=== PATIENT | female | born 1985 | race Caucasian/White ===

== ENCOUNTER 2016-03-10 16:53 | Emergency (ER) | payer OTHER ==
[2016-03-10 17:08] VITALS: BP 120/69; PULSE 95; TEMP 98.4; BMI 21.2
--- NOTE | 2016-03-10 18:52 | PDOC ---
History of Present Illness - General History Source: Patient Exam Limitations: No Limitations - History of Present Illness Initial Comments: 03/10/16 19:16 The patient is a 31 year old female (; currently 7 months ), with a significant past medical history of asthma, who presents to the emergency department with flu-like symptoms including body aches and a cough since yesterday but worsening this morning. The patient additionally admits to a decreased appetite today. She denies any fevers, chills, SOB, nausea, vomiting, diarrhea or abdominal pain. Allergies: None reported. Past Surgical History: None reported. Social History: Non smoker. Denies alcohol or drug use. PCP: Dr. Mahsa Snell <Jess Alberts - Last Filed: 03/10/16 19:17> - General History Source: Patient Exam Limitations: No Limitations <Marky Chauhan - Last Filed: 03/10/16 20:53> - General Chief Complaint: Cold Symptoms Stated Complaint: 7MONTHS/BODY ACHE/COUGH Time Seen by Provider: 03/10/16 18:15 Past History <Jess Alberts - Last Filed: 03/10/16 19:17> - Past Medical History Anemia: No Asthma: Yes Cancer: No Cardiac Disorders: No CVA: No COPD: Yes CHF: No Dementia: No Diabetes: No GI Disorders: No Disorders: No HTN: No Hypercholesterolemia: No Kidney Stones: No Liver Disease: No Psychiatric Problems: Yes (ANXIETY) Suicide Attempt (Hx): No Seizures: No Thyroid Disease: No - Surgical History Abdominal Surgery: No Appendectomy: No Cardiac Surgery: No Cholecystectomy: No Lung Surgery: No Neurologic Surgery: No Orthopedic Surgery: No - Reproductive History (#): 1 Para: 0 Cervical CA: No Dysfunctional Uterine Bleeding: No Ectopic : No Endometrial CA: No PID: No Polycystic Ovaries: No Therapeutic (s) & number: No Tubal Ligation: No Spontaneous : 0 - Immunization History Immunization Up to Date: Yes (no flu shot) - Psycho/Social/Smoking Cessation Hx Anxiety: No Suicidal Ideation: No Smoking Status: No Smoking History: Current some day smoker Have you smoked in the past 12 months: Yes Number of Cigarettes Smoked Daily: 1 If you are a former smoker, when did you quit?: JULY 2015 Cigars Per Day: 0 Information on smoking cessation initiated: No 'Breaking Loose' booklet given: 08/22/14 Hx Alcohol Use: No Drug/Substance Use Hx: No (past) Substance Use Type: Alcohol, Prescribed Hx Substance Use Treatment: No <Marky Chauhan - Last Filed: 03/10/16 20:53> - Past Medical History Allergies/Adverse Reactions: Allergies Allergy/AdvReac Type Severity Reaction Status Date / Time No Known Allergies Allergy Verified 03/10/16 16:59 Home Medications: Ambulatory Orders NK [No Known Home Medication] 03/10/16 Review of Systems - Review of Systems Able to Perform ROS?: Yes Comments:: 03/10/16 19:12 GENERAL/CONSTITUTIONAL: +Body aches, decreased appetite. No fever or chills. HEAD, EYES, EARS, NOSE AND THROAT: No change in vision. No ear pain or discharge. No sore throat. CARDIOVASCULAR: No chest pain or shortness of breath. RESPIRATORY: +Cough. No wheezing or hemoptysis. GASTROINTESTINAL: No nausea, vomiting, diarrhea or constipation. GENITOURINARY: No dysuria, frequency, or change in urination. MUSCULOSKELETAL: No joint or muscle swelling or pain. No neck or back pain. SKIN: No rash. NEUROLOGIC: No headache, vertigo, loss of consciousness, or change in strength/ sensation. ENDOCRINE: No increased thirst. No abnormal weight change. HEMATOLOGIC/LYMPHATIC: No anemia, easy bleeding, or history of blood clots. ALLERGIC/IMMUNOLOGIC: No hives or skin allergy. <Jess Alberts - Last Filed: 03/10/16 19:17> *Physical Exam - Vital Signs Last Vital Signs Temp Pulse Resp BP Pulse Ox 98.4 F 95 H 20 120/69 100 03/10/16 16:59 03/10/16 16:59 03/10/16 16:59 03/10/16 16:59 03/10/16 16:59 - Physical Exam Comments: 03/10/16 19:09 GENERAL: Awake, alert, and fully oriented, in no acute distress. HEAD: No signs of trauma. EYES: PERRLA, EOMI, sclera anicteric, conjunctiva clear. ENT: Auricles normal inspection, hearing grossly normal, nares patent, oropharynx clear without exudates. Moist mucosa. NECK: Normal ROM, supple, no lymphadenopathy, JVD, or masses. LUNGS: Breath sounds equal, clear to auscultation bilaterally. No wheezes, and no crackles. HEART: Regular rate and rhythm, normal S1 and S2, no murmurs, rubs or gallops. ABDOMEN: Gravid abdomen. Soft, nontender, normoactive bowel sounds. No guarding , no rebound. No masses. EXTREMITIES: Normal range of motion, no edema. No clubbing or cyanosis. No cords , erythema, or tenderness. NEUROLOGICAL: Cranial nerves II through XII grossly intact. Normal speech, normal gait. SKIN: Warm, dry, normal turgor, no rashes or lesions noted. <Jess Alberts - Last Filed: 03/10/16 19:17> - Vital Signs Last Vital Signs Temp Pulse Resp BP Pulse Ox 98.4 F 95 H 20 120/69 100 03/10/16 16:59 03/10/16 16:59 03/10/16 16:59 03/10/16 16:59 03/10/16 16:59 <Marky Chauhan - Last Filed: 03/10/16 20:53> ED Treatment Course - LABORATORY CBC & Chemistry Diagram: 03/10/16 18:56 03/10/16 18:56 <Jess Alberts - Last Filed: 03/10/16 19:17> - LABORATORY CBC & Chemistry Diagram: 03/10/16 18:56 03/10/16 18:56 <Marky Chauhan - Last Filed: 03/10/16 20:53> Medical Decision Making - Medical Decision Making 03/10/16 18:50 A portion of this note was documented by scribe services under my direction. I have reviewed the details of the note, within reason, and agree with the documentation with the following case summary and management plan written by me. Patient treated in the ED. Nursing notes are reviewed and incorporated into the medical decision-making. Vital signs reviewed. Peripheral IV access obtained by the nurse, laboratory studies are drawn and sent, reviewed and interpreted by myself. Vital Signs Temp Pulse Resp BP Pulse Ox 98.4 F 95 H 20 120/69 100 03/10/16 16:59 03/10/16 16:59 03/10/16 16:59 03/10/16 16:59 03/10/16 16:59 31-year-old female with past medical history of asthma, approximately 7 months , presents immersed department for coughing and body aches and flulike symptoms since yesterday. Denies fevers, chills, shortness of breath. Patient feels general malaise. We'll rule out influenza. Obtain basic labs and treat symptoms and reassess. Likely viral syndrome. 03/10/16 20:51 CBC, BMP 03/10/16 18:56 03/10/16 18:56 CMP Sodium 138 mmol/L (136-145) 03/10/16 18:56 Potassium 3.8 mmol/L (3.5-5.1) 03/10/16 18:56 Chloride 106 mmol/L (98-107) 03/10/16 18:56 Carbon Dioxide 24 mmol/L (21-32) D 03/10/16 18:56 Anion Gap 8 (8-16) 03/10/16 18:56 BUN 8 mg/dL (7-18) 03/10/16 18:56 Creatinine 0.4 mg/dL (0.55-1.02) L 03/10/16 18:56 Creat Clearance w eGFR > 60 (>60) 03/10/16 18:56 Random Glucose 72 mg/dL (74-106) L 03/10/16 18:56 Calcium 8.5 mg/dL (8.5-10.1) 03/10/16 18:56 Total Bilirubin 0.2 mg/dL (0.2-1.0) D 03/10/16 18:56 AST 14 U/L (15-37) L D 03/10/16 18:56 ALT 17 U/L (12-78) D 03/10/16 18:56 Alkaline Phosphatase 95 U/L (45-117) D 03/10/16 18:56 Total Protein 6.5 g/dl (6.4-8.2) 03/10/16 18:56 Albumin 3.2 g/dl (3.4-5.0) L 03/10/16 18:56 Labs reviewed. Influenza negative. Supportive care with tylenol. I discussed the physical exam findings, ancillary test results and final diagnoses with the patient. I answered all of the patient's questions. The patient was satisfied with the care received and felt comfortable with the discharge plan and treatment plan. The patient will call their primary care physician within 24 hours to arrange follow-up and will return to the Emergency Department with any new, persistant or worsening symptoms. <Marky Chauhan - Last Filed: 03/10/16 20:53> *DC/Admit/Observation/Transfer - Attestations Scribe Attestion: 03/10/16 19:03 Documentation prepared by Jess Alberts, acting as medical staff manager for Marky Chauhan MD. <Jess Alberts - Last Filed: 03/10/16 19:17> - Discharge Dispostion Admit: No <Marky Chauhan - Last Filed: 03/10/16 20:53> Diagnosis at time of Disposition: Viral syndrome - Discharge Dispostion Disposition: HOME Condition at time of disposition: Stable - Referrals Referrals: Mahsa Snell MD [Primary Care Provider] - - Patient Instructions Printed Discharge Instructions: DI for Viral Syndrome Additional Instructions: It may take several days before you get better. Your blood and influenza swab was unremarkable. Take 650 mg tylenol every 4 hours as needed for pain/fever. 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 Call to schedule an appointment.
[2016-03-10 19:16] LABS: BASOPHIL 0.3 % (0-2.0); EOSINOPHIL 4.5 % (0-4.5); MCH 30.7 pg (25.7-33.7); MCHC 33.6 g/dl (32.0-36.0); MEAN CELL VOLUME 91.4 fl (80-96); MEAN PLT VOLUME 9.2 fl (7.5-11.1); NEUTROPHILS 68.5 % (42.8-82.8); PLATELET COUNT 182 K/MM3 (134-434); RDW 13.1 % (11.6-15.6); WHITE BLOOD COUNT 10.5 K/mm3 (4.0-10.0)
[2016-03-10 20:01] LABS: ALBUMIN 3.2 g/dl (3.4-5.0); ALK PHOS 95 U/L (45-117); ANION GAP 8 (8-16); BILIRUBIN,TOTAL 0.2 mg/dL (0.2-1.0); CALCIUM 8.5 mg/dL (8.5-10.1); CO2 24 mmol/L (21-32); CREATININE 0.4 mg/dL (0.55-1.02); GLUCOSE,RANDOM 72 mg/dL (74-106); SGOT/AST 14 U/L (15-37); SGPT/ALT 17 U/L (12-78); TOT PROT 6.5 g/dl (6.4-8.2)
[2016-03-10] MEDS ORDERED: ACETAMINOPHEN 325 MG TABLET (FP) PO ONE (20:34)
[2016-03-10] MEDS ORDERED: ACETAMINOPHEN 325 MG TABLET (FP) ONE (20:36)
== END 2016-03-10 20:57 | disposition home or self-care (01) ==
LOC: JER 16:53
DX: O98.513 Other viral diseases complicating pregnancy, third trimester (principal); Z3A.28 28 weeks gestation of pregnancy
CPT/HCPCS: 36415; 80053; 85025; 87804; 99283-25

== ENCOUNTER 2016-10-09 15:35 | Emergency (ER) | payer OTHER ==
[2016-10-09 15:50] VITALS: BP 158/98; PULSE 98; TEMP 98.6; BMI 20.9
[2016-10-09] MEDS ORDERED: ACETAMINOPHEN 325 MG TABLET (FP) PO ONE (16:09)
--- NOTE | 2016-10-09 16:11 | PDOC ---
History of Present Illness <Javon Thao - Last Filed: 10/09/16 16:12> - General History Source: Patient Exam Limitations: No Limitations - History of Present Illness Initial Comments: 10/09/16 18:05 The patient is a 31 year old female, with a significant past medical history of asthma and COPD who presents to the emergency department with worsening runny nose and sore throat. The patient reports having pain in her throat that is often worse while swallowing since Weds/Thurs. She also reports having worsening pain in her nose with congestion, clear discharge. The patient also relates having mild ear pain along with sinus pressure. She denies any recent travel or sick contacts. She denies recent fevers, chills, headache or dizziness. She denies recent nausea, vomit, diarrhea or constipation. Allergies: NKA Past surgical history: None reported. Social history: Current Everyday smoker (10 cigs per day). Denies EtOH use and recreational drug use. <Benton Souza - Last Filed: 10/09/16 18:06> - General Chief Complaint: Cold Symptoms Stated Complaint: SINUS INFECTION Time Seen by Provider: 10/09/16 15:46 Past History - Past Medical History Anemia: No Asthma: Yes Cancer: No Cardiac Disorders: No CVA: No COPD: Yes CHF: No Dementia: No Diabetes: No GI Disorders: No Disorders: No HTN: No Hypercholesterolemia: No Kidney Stones: No Liver Disease: No Psychiatric Problems: Yes (ANXIETY) Suicide Attempt (Hx): No Seizures: No Thyroid Disease: No - Surgical History Abdominal Surgery: No Appendectomy: No Cardiac Surgery: No Cholecystectomy: No Lung Surgery: No Neurologic Surgery: No Orthopedic Surgery: No - Reproductive History (#): 1 Para: 0 Cervical CA: No Dysfunctional Uterine Bleeding: No Ectopic : No Endometrial CA: No PID: No Polycystic Ovaries: No Therapeutic (s) & number: No Tubal Ligation: No Spontaneous : 0 - Immunization History Immunization Up to Date: Yes - Psycho/Social/Smoking Cessation Hx Anxiety: Yes Suicidal Ideation: No Smoking Status: No Smoking History: Current every day smoker Have you smoked in the past 12 months: Yes Number of Cigarettes Smoked Daily: 10 If you are a former smoker, when did you quit?: JULY 2015 Cigars Per Day: 0 Information on smoking cessation initiated: Yes 'Breaking Loose' booklet given: 10/09/16 Hx Alcohol Use: No Drug/Substance Use Hx: Yes Substance Use Type: Prescribed Hx Substance Use Treatment: No <Javon Thao - Last Filed: 10/09/16 16:12> <Benton Souza - Last Filed: 10/09/16 18:06> - Past Medical History Allergies/Adverse Reactions: Allergies Allergy/AdvReac Type Severity Reaction Status Date / Time No Known Allergies Allergy Verified 03/10/16 16:59 Home Medications: Ambulatory Orders Buprenorphine HCl [Subutex -] 8 mg SL DAILY 10/09/16 Respiratory Specific PMHX - Complaint Specific PMHX TB (Tuberculosis): No <Javon Thao - Last Filed: 10/09/16 16:12> Review of Systems - Review of Systems Able to Perform ROS?: Yes Comments:: 10/09/16 18:06 CONSTITUTIONAL: No reported: Fever, Chills, Diaphoresis, Generalized Weakness, Malaise, Loss of Appetite HEENT: +Rhinorrhea, sore throat, and ear pain. No reported: Nasal Congestion, Eye Pain , Visual Changes CARDIOVASCULAR: No reported: Chest Pain, Syncope, Palpitations, Irregular Heart Rate, Lightheadedness, Peripheral Edema RESPIRATORY: No reported: Cough, Shortness of Breath, SOB with Exertion, Orthopnea, Wheezing , Stridor, Hemoptysis GASTROINTESTINAL: No reported: Abdominal pain, Abdominal Distension, Nausea, Vomiting, Diarrhea, Constipation, Melena, Hematochezia GENITOURINARY: No reported: Dysuria, Frequency, Urgency, Hesitancy, Flank Pain, Genital Pain MUSCULOSKELETAL: No reported: Myalgia, Arthralgia, Joint Swelling, Back pain, Neck Pain SKIN: No reported: Rash, Itching, Pallor HEMATOLOGIC/IMMUNOLOGIC: No reported: Easy Bleeding, Easy Bruising, Lymphadenopathy, Frequent infections ENDOCRINE: No reported: Unexplained Weight Gain, Unexplained Weight Loss, Heat Intolerance , Cold Intolerance NEUROLOGIC: No reported: Headache, Focal Weakness, Paresthesias, Vertigo, Lightheadedness, Unsteady Gait, Seizure, Mental Status Changes, Incontinence PSYCHIATRIC: No reported: Anxiety, Depression <Benton Souza - Last Filed: 10/09/16 18:06> *Physical Exam - Vital Signs Last Vital Signs Temp Pulse Resp BP Pulse Ox 98.6 F 98 H 20 158/98 99 08/07/17 15:36 10/09/16 15:36 10/09/16 15:36 10/09/16 15:36 10/09/16 15:36 <Javon Thao - Last Filed: 10/09/16 16:12> - Vital Signs Last Vital Signs Temp Pulse Resp BP Pulse Ox 98.6 F 98 H 20 158/98 99 10/09/16 15:36 10/09/16 15:36 10/09/16 15:36 10/09/16 15:36 10/09/16 15:36 - Physical Exam Comments: 10/09/16 18:06 GENERAL: The patient is awake, alert, and fully oriented, Nontoxic - in no acute distress. HEAD: Normocephalic, atraumatic. EYES: extraocular movements intact, sclera anicteric, conjunctiva clear. ENT: Mild anterior pharyngeal erythema. Raw Nares. Nasal congestion. NECK: Normal range of motion, supple, no cervical lympahdenopathy LUNGS: Breath sounds equal, clear to auscultation bilaterally. No wheezes, no rhonchi, no rales. HEART: Regular rate and rhythm, without murmur, rub or gallop. ABDOMEN: Soft, nontender, normoactive bowel sounds. No guarding, no rebound.No CVA tenderness NEUROLOGICAL: No facial asymmetry, Normal speech. moving all 4 extremities psontnously and symmetrically PSYCH: Normal mood, normal affect. SKIN: Warm, Dry, normal turgor. <Benton Souza - Last Filed: 10/09/16 18:06> ED Treatment Course - Medications Given in the ED: ED Medications Discontinued Medications Generic Name Dose Route Start Last Admin Trade Name Yaoq PRN Reason Stop Dose Admin Acetaminophen 650 mg 10/09/16 16:09 10/09/16 16:33 Tylenol - PO 10/09/16 16:10 650 mg ONCE ONE Administration <Benton Souza - Last Filed: 10/09/16 18:06> Medical Decision Making - Medical Decision Making 10/09/16 16:06 31y F no pmhx presents with nasal congestion, sore throat x 4-5 days, no associated fever/chills, coughing, headache. pt has been using an OTC nasal spray, and sudafed with good effect. on exam pt with nasal congestion, mildy erhtemadous phosterior phyarnx suspect URI will recommend supportive are with sudafed, motrin, fluid hydration pts bp noted for mild hypertension - suspect secondary to the sudefed pmd fu w return precautions I discussed the physical exam findings, ancillary test results and final diagnoses with the patient. I answered all of the patient's questions. The patient was satisfied with the care received and felt comfortable with the discharge plan and treatment plan. The patient will call their primary care physician within 24 hours to arrange follow-up and will return to the Emergency Department with any new, persistent or worsening symptoms. <Javon Thao - Last Filed: 10/09/16 16:12> *DC/Admit/Observation/Transfer - Discharge Dispostion Admit: No <Javon Thao - Last Filed: 10/09/16 16:12> - Attestations Scribe Attestion: 10/09/16 18:06 Documentation prepared by Benton Souza, acting as durable medical equipment repairer for Javon Thao MD. <Benton Souza - Last Filed: 10/09/16 18:06> Diagnosis at time of Disposition: Viral URI - Discharge Dispostion Disposition: HOME Condition at time of disposition: Improved - Referrals Referrals: [facility] [Provider Group] - Patient Instructions Printed Discharge Instructions: DI for Viral Upper Respiratory Infection -- Adult Additional Instructions: Return to the emergency department immediately with ANY new, persistent or worsening symptoms. Take ibuprofen/tylenol for pain or fever. Use sudafed for congestion. STay well hydrated. Make sure to wash frequently and cover your mouth when sneezing/coughing at home to prevent spread. You MUST call and follow up with your doctor in 2-days for further evaluation of your symptoms. Results were discussed with you. Please make sure your doctor reviews the results of your emergency evaluation. Print Language: SERBIAN - Post Discharge Activity Work/School Note: Back to Work
== END 2016-10-09 16:37 | disposition home or self-care (01) ==
LOC: FER 15:35
DX: J06.9 Acute upper respiratory infection, unspecified (principal); J44.9 Chronic obstructive pulmonary disease, unspecified; J45.909 Unspecified asthma, uncomplicated; F41.9 Anxiety disorder, unspecified
CPT/HCPCS: 99282-25